=== PATIENT | male | born 1965 | race Caucasian/White ===

== ENCOUNTER 2016-07-03 13:13 | Inpatient (IN) | payer MEDICAID, OTHER ==
[~2016-07-03] VITALS: Ht 185.4 cm; Wt 100.5 kg
[~2016-07-03 13:13] MED LIST: BENZ1TAB10 PO; RISP2TAB22 PO
[2016-07-03] MEDS ORDERED: HALO10 PO (13:34)
[2016-07-03] MEDS ORDERED: OLAN5TAB2 PO (13:34)
[2016-07-03] MEDS ORDERED: SIMV-260 PO (13:34)
[2016-07-03 14:21] LABS: BASOPHILS % (AUTO) 0.9 % (0.0-2.0); EOSINOPHILS % (AUTO) 1.3 % (1.0-6.0); HEMATOCRIT 41.8 % (41-53); HEMOGLOBIN 13.7 g/dL (13.5-17.5); LYMPHOCYTES # (AUTO) 1.9 K/uL (1.0-4.8); LYMPHOCYTES % (AUTO) 22.2 % (22.0-44.0); MEAN CORPUSCULAR HEMOGLOBIN 29.5 pg (26.0-34.0); MEAN CORPUSCULAR HGB CONC 32.8 G/dL (31.0-37.0); MEAN CORPUSCULAR VOLUME 90 fL (80-100); MONOCYTES # (AUTO) 0.9 K/uL (0.1-1.0); MONOCYTES % (AUTO) 10.2 % (2.0-9.0); NEUTROPHILS # (AUTO) 5.6 K/uL (1.8-7.7); NEUTROPHILS % (AUTO) 65.4 % (40.0-70.0); PLATELET COUNT (AUTO) 208 K/uL (150-450); RED BLOOD CELL COUNT(AUTO) 4.64 MIL/uL (4.50-5.90); RED CELL DISTRIBUTION WIDTH 13.9 % (11.5-14.5); WHITE BLOOD COUNT (AUTO) 8.6 K/uL (4.5-11.0)
[2016-07-03 14:31] LABS: ANION GAP 10 mmol/L (8-16); CALCIUM, TOTAL 9.1 mg/dL (8.8-10.5); CARBON DIOXIDE 25 mmol/L (22-29); CHLORIDE 101 mmol/L (98-107); CREATININE 1.15 mg/dL (0.60-1.30); GLOMERULAR FILTR. RATE CALC > 60 mL/min (>60); POTASSIUM 3.6 mmol/L (3.5-5.1); SODIUM SERUM 136 mmol/L (136-145); UREA NITROGEN, BLOOD 26 mg/dL (7-18)
[2016-07-03 14:36] LABS: ALANINE AMINOTRANSFERASE 51 U/L (12-78); ALBUMIN 3.9 g/dL (3.4-5.0); ASPARTATE AMINOTRANSFERASE 83 U/L (15-37); BILIRUBIN,TOTAL 0.4 mg/dL (0.1-1.0); TOTAL PROTEIN, SERUM 7.3 g/dL (6.4-8.2)
[2016-07-03] MEDS ORDERED: DiphenhydrAMINE HCL 50 MG/ML VIAL IM ONE (15:00)
[2016-07-03] MEDS ORDERED: LORazepam 2 MG/ML VIAL IM ONE (15:00)
[2016-07-03] MEDS ORDERED: HALOPERIDOL LACTATE 5 MG/ML VIAL IM ONE (15:00)
[2016-07-03] MEDS: LORazepam 2 MG TABLET PO PRN (18:23)
[2016-07-03 20:52] VITALS: BP 122/81
[2016-07-03] MEDS: SIMVASTATIN 20 MG TABLET PO SCH (21:00)
[2016-07-04 06:24] VITALS: BP 106/60
[2016-07-04 08:16] LABS: BASOPHILS # (AUTO) 0.04 K/uL (0.00-0.20); BASOPHILS % (AUTO) 0.6 % (0.0-2.0); EOSINOPHILS # (AUTO) 0.21 K/uL (0.00-0.70); EOSINOPHILS % (AUTO) 3.01 % (1.0-6.0); HEMATOCRIT 40.5 % (41-53); HEMOGLOBIN 13.4 g/dL (13.5-17.5); LYMPHOCYTES # (AUTO) 1.9 K/uL (1.0-4.8); LYMPHOCYTES % (AUTO) 27.6 % (22.0-44.0); MEAN CORPUSCULAR HEMOGLOBIN 29.9 pg (26.0-34.0); MEAN CORPUSCULAR HGB CONC 33.1 G/dL (31.0-37.0); MEAN CORPUSCULAR VOLUME 90 fL (80-100); MONOCYTES # (AUTO) 0.5 K/uL (0.1-1.0); NEUTROPHILS # (AUTO) 4.3 K/uL (1.8-7.7); NEUTROPHILS % (AUTO) 61.9 % (40.0-70.0); PLATELET COUNT (AUTO) 194 K/uL (150-450); RED BLOOD CELL COUNT(AUTO) 4.49 MIL/uL (4.50-5.90)
[2016-07-04 08:20] VITALS: BP 118/75
[2016-07-04 08:36] LABS: ALANINE AMINOTRANSFERASE 51 U/L (12-78); ALBUMIN 3.7 g/dL (3.4-5.0); ANION GAP 9 mmol/L (8-16); ASPARTATE AMINOTRANSFERASE 77 U/L (15-37); BILIRUBIN,TOTAL 0.7 mg/dL (0.1-1.0); CALCIUM, TOTAL 8.6 mg/dL (8.8-10.5); CARBON DIOXIDE 25 mmol/L (22-29); CHLORIDE 104 mmol/L (98-107); CHOL/HDL RATIO 2.9 (4.2-7.3); CREATININE 1.08 mg/dL (0.60-1.30); GLOMERULAR FILTR. RATE CALC > 60 mL/min (>60); POTASSIUM 3.8 mmol/L (3.5-5.1); SODIUM SERUM 138 mmol/L (136-145); TOTAL PROTEIN, SERUM 6.6 g/dL (6.4-8.2); UREA NITROGEN, BLOOD 22 mg/dL (7-18)
[2016-07-04] MEDS: HALOPERIDOL 5 MG TABLET PO PRN ×2 (10:56→17:13)
[2016-07-04] MEDS: LORazepam 2 MG TABLET PO PRN ×2 (10:56→17:13)
[2016-07-04 16:31] VITALS: BP 111/63
[2016-07-04] MEDS: BENZTROPINE MESYLATE 1 MG TABLET PO SCH (17:13)
[2016-07-04] MEDS: RisperiDONE 2 MG TABLET PO SCH (17:13)
[2016-07-04] MEDS: SIMVASTATIN 20 MG TABLET PO SCH (20:39)
[2016-07-04] MEDS ORDERED: ACETAMINOPHEN 325 MG TABLET PO PRN (21:30)
[2016-07-04] MEDS ORDERED: IBUPROFEN 400 MG TABLET PO PRN (21:30)
[2016-07-05 06:38] VITALS: BP 128/62
[2016-07-05] MEDS: RisperiDONE 2 MG TABLET PO SCH ×2 (08:11→15:44)
[2016-07-05] MEDS: BENZTROPINE MESYLATE 1 MG TABLET PO SCH ×2 (08:11→15:44)
[2016-07-05 08:22] VITALS: BP 107/62
[2016-07-05 08:39] LABS: HEMOGLOBIN A1C 5.4 % (4.5-6.2)
[2016-07-05 08:55] LABS: THYROID STIMULATING HORMONE 2.85 uIU/mL (0.36-3.74)
[2016-07-05 16:15] VITALS: BP 105/64
[2016-07-05] MEDS: LORazepam 2 MG TABLET PO PRN (20:29)
[2016-07-05] MEDS: SIMVASTATIN 20 MG TABLET PO SCH (20:29)
[2016-07-05] MEDS: ZOLPIDEM TARTRATE 10 MG TABLET PO PRN (20:29)
[2016-07-06 06:07] VITALS: BP 119/78
[2016-07-06 08:26] VITALS: BP 117/64
[2016-07-06] MEDS: BENZTROPINE MESYLATE 1 MG TABLET PO SCH ×2 (09:40→16:15)
[2016-07-06] MEDS: RisperiDONE 2 MG TABLET PO SCH ×2 (09:40→16:15)
[2016-07-06] MEDS: LORazepam 2 MG TABLET PO PRN ×2 (09:40→16:15)
[2016-07-06] MEDS ORDERED: VALPROIC ACID 250 MG CAPSULE PO SCH (10:30)
[2016-07-06] MEDS: DIVALPROEX SODIUM 500 MG DR TABLET PO SCH ×2 (11:09→16:15)
[2016-07-06] MEDS: HALOPERIDOL 5 MG TABLET PO PRN (13:06)
[2016-07-06 16:11] VITALS: BP 120/68
[2016-07-06] MEDS: NICOTINE 14 MG/24 HOUR PATCH TD SCH (17:18)
[2016-07-06] MEDS: SIMVASTATIN 20 MG TABLET PO SCH (20:11)
[2016-07-07 06:15] VITALS: BP 112/75
[2016-07-07] MEDS: DIVALPROEX SODIUM 500 MG DR TABLET PO SCH ×2 (08:47→16:33)
[2016-07-07] MEDS: LORazepam 2 MG TABLET PO PRN ×2 (08:47→16:34)
[2016-07-07] MEDS: BENZTROPINE MESYLATE 1 MG TABLET PO SCH ×2 (08:47→16:34)
[2016-07-07] MEDS: RisperiDONE 2 MG TABLET PO SCH ×2 (08:48→16:34)
[2016-07-07] MEDS: NICOTINE 14 MG/24 HOUR PATCH TD SCH (08:50)
[2016-07-07 08:56] VITALS: BP 116/63
[2016-07-07 16:00] VITALS: BP 121/73
[2016-07-07] MEDS: HALOPERIDOL 5 MG TABLET PO PRN (16:34)
[2016-07-07] MEDS: ZOLPIDEM TARTRATE 10 MG TABLET PO PRN (20:46)
[2016-07-07] MEDS: SIMVASTATIN 20 MG TABLET PO SCH (20:46)
[2016-07-08 06:13] VITALS: BP 115/76
[2016-07-08 08:34] VITALS: BP 109/71
[2016-07-08] MEDS: BENZTROPINE MESYLATE 1 MG TABLET PO SCH ×2 (08:55→16:17)
[2016-07-08] MEDS: RisperiDONE 2 MG TABLET PO SCH ×2 (08:55→16:17)
[2016-07-08] MEDS: DIVALPROEX SODIUM 500 MG DR TABLET PO SCH ×2 (08:55→16:17)
[2016-07-08] MEDS: LORazepam 2 MG TABLET PO PRN ×2 (08:55→16:17)
[2016-07-08] MEDS: NICOTINE 14 MG/24 HOUR PATCH TD SCH (08:57)
[2016-07-08 16:00] VITALS: BP 132/71
[2016-07-08] MEDS: HALOPERIDOL 5 MG TABLET PO PRN (16:17)
[2016-07-08] MEDS: SIMVASTATIN 20 MG TABLET PO SCH (20:18)
[2016-07-09 00:53] VITALS: BP 133/76
[2016-07-09 08:26] VITALS: BP 106/66
[2016-07-09] MEDS: NICOTINE 14 MG/24 HOUR PATCH TD SCH (09:18)
[2016-07-09] MEDS: DIVALPROEX SODIUM 500 MG DR TABLET PO SCH ×2 (09:18→16:57)
[2016-07-09] MEDS: RisperiDONE 2 MG TABLET PO SCH ×2 (09:18→16:57)
[2016-07-09] MEDS: BENZTROPINE MESYLATE 1 MG TABLET PO SCH ×2 (09:18→16:57)
[2016-07-09] MEDS ORDERED: RISP2 PO (15:30)
[2016-07-09] MEDS ORDERED: DIVA500T35 PO (15:30)
== END 2016-07-09 17:03 | disposition home or self-care (01) | DRG 750 ==
LOC: EMS 13:14 → B3A 16:11 → B2S 07-08 22:05
PROVIDERS: ADMIT Psychiatry & Neurology Psychiatry; ATTEND Psychiatry & Neurology Psychiatry
PROC: GZHZZZZ Group Psychotherapy (ICD-10-PCS; principal; 2016-07-04)
DX: F25.9 Schizoaffective disorder, unspecified (principal); Z78.1 Physical restraint status; F17.210 Nicotine dependence, cigarettes, uncomplicated; E78.5 Hyperlipidemia, unspecified; F19.10 Other psychoactive substance abuse, uncomplicated; R74.0 Nonspecific elevation of levels of transaminase and lactic acid dehydrogenase [LDH]; Z79.899 Other long term (current) drug therapy; Z72.89 Other problems related to lifestyle; Z71.89 Other specified counseling
CPT/HCPCS: 83036; 84443; 96372; 99285; G0480; J1200; J1630; J2060